=== PATIENT | female | born 1980 ===

== ENCOUNTER 2021-01-13 09:45 | Inpatient (IN) | payer OTHER ==
[~2021-01-13] VITALS: Ht 154.9 cm; Wt 103.4 kg
[2021-01-22] MEDS ORDERED: ADULT LOW DOSE81 M1 PO (02:14)
[2021-01-22] MEDS ORDERED: PRENATAL TABLE1 EAC1 PO (02:14)
== END 2021-01-24 14:33 | disposition home or self-care (01) | DRG 807 ==
LOC: SURH 01-21 09:45 → LDR 01-22 02:05 → OB/GYN 01-22 19:15
PROVIDERS: ADMIT Obstetrics & Gynecology; ATTEND Obstetrics & Gynecology
PROC: 10E0XZZ Delivery of Products of Conception, External Approach (ICD-10-PCS; principal; 2021-01-22)
PROC: 0W8NXZZ Division of Female Perineum, External Approach (ICD-10-PCS; 2021-01-22)
PROC: 4A1HXFZ Monitoring of Products of Conception, Cardiac Rhythm, External Approach (ICD-10-PCS; 2021-01-22)
DX: O80 Encounter for full-term uncomplicated delivery (principal); Z37.0 Single live birth; Z3A.40 40 weeks gestation of pregnancy